=== PATIENT | male | born 1965 | race Caucasian/White ===

== ENCOUNTER 2024-07-13 21:46 | Inpatient (IN) | payer BC ==
[~2024-07-13] VITALS: Ht 188 cm; Wt 140.9 kg
[2024-07-13] MEDS ORDERED: ondansetron/PF 4mg/2ml inj IM ONE (22:00)
[2024-07-13] MEDS: morphine 2 MG/ML inj. syringe IV ONE ×2 (22:06→22:25)
[2024-07-13] MEDS: normal saline 1000ml 1,000 ML IV ONE (22:11)
[2024-07-13] MEDS: amiodarone/D5 360MG/200ML BAG 200 ML IV SCH (22:11)
[2024-07-13] MEDS: aspirin 81mg tab.chew PO ONE (22:12)
[2024-07-13 22:22] LABS: BASOPHILS # (AUTO) 0.1 X10'3 (0-0.2); MEAN CORPUSCULAR VOLUME 87.3 FL (78-98); MONOCYTES # (AUTO) 0.6 X10'3 (0-0.9)
[2024-07-13 22:23] LABS: BASOPHILS % (AUTO) 0.7 % (0-1); EOSINOPHILS # (AUTO) 0.2 X10'3 (0-0.9); EOSINOPHILS % (AUTO) 1.6 % (0-6); HEMOGLOBIN 14.4 g/dl (14.0-17.9); LYMPHOCYTES # (AUTO) 6.3 X10'3 (1.1-4.8); LYMPHOCYTES % (AUTO) 61.2 % (21-51); MEAN CORPUSCULAR HEMOGLOBIN 30.6 PG (27.0-31.0); MEAN PLATELET VOLUME 9.2 FL (7.4-10.4); MONOCYTES % (AUTO) 6.1 % (2-12); NEUTROPHILS # (AUTO) 3.1 X10'3 (1.8-7.7); NEUTROPHILS % (AUTO) 30.4 % (42-75); PLATELET COUNT 284 X10'3 (140-440); RED CELL DISTRIBUTION WIDTH 13.9 % (11.5-14.5); WHITE BLOOD COUNT 10.2 X10'3 (4.5-11.0)
[2024-07-13] MEDS: ondansetron/PF 4mg/2ml inj IV STA (22:25)
[2024-07-13 22:31] LABS: ALANINE AMINOTRANSFERASE 145 U/L (12-78); ALBUMIN 3.7 G/DL (3.4-5.0); ALBUMIN/GLOBULIN RATIO 1.1 (1.1-1.5); ALKALINE PHOSPHATASE 67 IU/L (46-116); ANION GAP 22 (8-16); ASPARTATE AMINO TRANSFERASE 117 U/L (10-37); BILIRUBIN,TOTAL 1.1 MG/DL (0.1-1.0); BLOOD UREA NITROGEN 23 MG/DL (7-18); CALCIUM 8.8 MG/DL (8.5-10.1); CHLORIDE 100 MMOL/L (99-107); CREATININE 1.53 MG/DL (0.60-1.10); GLUCOSE 266 MG/DL (70-104); POTASSIUM 3.2 MMOL/L (3.5-5.1); SODIUM 139 MMOL/L (135-145); TOTAL CARBON DIOXIDE 17.1 MMOL/L (24-32); eCRCL 60 ML/MIN; eGFR 47 ML/MIN
[2024-07-13 22:38] LABS: PRO BRAIN NATRIURETIC PEPTIDE 432 PG/ML (0-125)
[2024-07-13 23:03] LABS: APTT 25 SECONDS (22-32); INR 1.2 INR
[2024-07-13 23:10] LABS: SMUDGE CELLS 2+; TOTAL CELLS COUNTED 100
[2024-07-13 23:12] LABS: ACANTHOCYTES 1+; BURR CELLS 3+; ELLIPTOCYTES 1+; PLATELET ESTIMATE NORMAL; POIKILOCYTOSIS 3+
[2024-07-14] VITALS (13 sets, daily range): BP systolic 108–155; BP diastolic 59–81; PULSE 45–67; RESP 12–29; TEMP 97.3–98.4; O2SAT 91–98
[2024-07-14] MEDS: heparin 10,000 units/1 ML INJ IV ONE ×2 (00:01→00:32)
[2024-07-14] MEDS: heparin 25,000 UNIT/250ml bag 250 ML IV PRN (00:02)
[2024-07-14] MEDS: normal saline 1000ML IV soln IVB ONE (00:09)
[2024-07-14] MEDS: oxyCODONE/APAP 10/325mg tablet PO STA (00:09)
[2024-07-14] MEDS: MESSAGE TO NURSING IV ONE ×2 (00:10→08:34)
[2024-07-14] MEDS: potassium Cl 20 mEq SR tablet PO STA (00:41)
[2024-07-14 01:22] LABS: MAGNESIUM 1.6 MG/DL (1.5-2.4)
[2024-07-14] MEDS ORDERED: potassium Cl 40MEQ/1/2NS 520ml 520 ML IV PRN (02:40)
[2024-07-14] MEDS ORDERED: magnesium sulf-water 4G/100mL 100 ML IV PRN (02:40)
[2024-07-14] MEDS ORDERED: potassium Cl 20 mEq SR tablet PO PRN ×2 (02:40)
[2024-07-14] MEDS ORDERED: magnesium Cl slow-release 64mg tablet PO PRN (02:40)
[2024-07-14] MEDS ORDERED: acetaminophen 325mg tablet PO PRN (02:40)
[2024-07-14] MEDS ORDERED: mag hydrox/Alum hydrox/simeth 30ml oral suspension PO PRN (02:40)
[2024-07-14] MEDS ORDERED: magnesium sulf-water 2g/50mL 50 ML IV PRN (02:40)
[2024-07-14] MEDS ORDERED: ondansetron/PF 4mg/2ml inj IV PRN ×2 (02:40→10:45)
[2024-07-14] MEDS ORDERED: dextrose 50%-water 50ml dispensing syringe IV PRN ×2 (02:45)
[2024-07-14] MEDS ORDERED: DEXTROSE 15 GM of carb/4 tabs (each vial/BOTTLE has 4 tablets) PO PRN ×2 (02:45)
[2024-07-14] MEDS ORDERED: glucagon, human recombinant 1mg kit SUBCUT PRN (02:45)
[2024-07-14 03:33] LABS: PHOSPHORUS 6.2 MG/DL (2.3-4.5)
[2024-07-14 03:45] LABS: HEMOGLOBIN A1C 6.6 % (4.5-6.2)
[2024-07-14] MEDS ORDERED: Amlodipine PO (06:46)
[2024-07-14] MEDS ORDERED: APIX5TAB3 PO (06:46)
[2024-07-14] MEDS ORDERED: LOSA1TAB39 PO (06:48)
[2024-07-14] MEDS ORDERED: ATOR40TA PO (06:48)
[2024-07-14] MEDS ORDERED: BUSP10TA11 PO (06:48)
[2024-07-14] MEDS ORDERED: MELA10TA3 PO (06:50)
[2024-07-14] MEDS ORDERED: METF-1203 PO (06:50)
[2024-07-14 07:29] LABS: BASOPHILS # (AUTO) 0.1 X10'3 (0-0.2); BASOPHILS % (AUTO) 0.7 % (0-1); EOSINOPHILS % (AUTO) 0.2 % (0-6); HEMATOCRIT 38.4 % (42.0-52.0); HEMOGLOBIN 13.1 g/dl (14.0-17.9); LYMPHOCYTES # (AUTO) 0.7 X10'3 (1.1-4.8); LYMPHOCYTES % (AUTO) 9.2 % (21-51); MEAN CORPUSCULAR HEMOGLOBIN 29.3 PG (27.0-31.0); MEAN CORPUSCULAR VOLUME 86.4 FL (78-98); MEAN PLATELET VOLUME 8.9 FL (7.4-10.4); MONOCYTES # (AUTO) 0.4 X10'3 (0-0.9); MONOCYTES % (AUTO) 5.9 % (2-12); NEUTROPHILS # (AUTO) 6.3 X10'3 (1.8-7.7); PLATELET COUNT 179 X10'3 (140-440); RED BLOOD COUNT 4.45 X10'6 (4.70-6.10); RED CELL DISTRIBUTION WIDTH 13.9 % (11.5-14.5); WHITE BLOOD COUNT 7.5 X10'3 (4.5-11.0)
[2024-07-14] MEDS: INSULIN LISPRO 100 UNIT/ML INSULN.PEN MULTI-DOSE SQ SCH (07:43)
[2024-07-14] MEDS: K and/or MAG REPLACEMENT MC SCH (08:00)
[2024-07-14 08:11] LABS: CHOLESTEROL 145 MG/DL (0-200); HDL CHOLESTEROL 72 MG/DL (35-60); LDL CHOLESTEROL 64 MG/DL (50-100); TRIGLYCERIDES 36 MG/DL (20-135)
[2024-07-14] MEDS: heparin 10,000 units/1 ML INJ IV PRN (08:24)
[2024-07-14] MEDS: aspirin 81mg tab.chew PO SCH (08:30)
[2024-07-14] MEDS: metoprolol succinate 25mg (24-HOUR) SR. Tablet PO SCH (08:31)
[2024-07-14] MEDS: atorvastatin 20mg tablet PO SCH (08:32)
[2024-07-14] MEDS: busPIRone 15mg tablet PO SCH (09:00)
[2024-07-14] MEDS ORDERED: Metoprolol PO (09:11)
[2024-07-14] MEDS ORDERED: FLEC100T PO (09:11)
[2024-07-14] MEDS ORDERED: verapamil 2.5 mg/ml inj IV ONE (09:15)
[2024-07-14] MEDS ORDERED: heparin 1,000unit/ml 10ml vial 10 ML ONE (09:15)
[2024-07-14] MEDS ORDERED: LIDOcaine 1% 30ml preserv. free vial ONE (09:15)
[2024-07-14] MEDS ORDERED: iohexol 350MG/ML 100ml bottle IV ONE (09:15)
[2024-07-14] MEDS ORDERED: fentaNYL/PF 50MCG/1 ML 2ML syringe ONE (09:15)
[2024-07-14] MEDS ORDERED: midazolam 1 mg/ML 2ml injection ONE ×2 (09:15→09:55)
[2024-07-14] MEDS ORDERED: nitroGLYCERIN 500mcg/5mL D5W 5 ML IV ONE (09:48)
[2024-07-14] MEDS ORDERED: HYDROcodone/acetaminophen 5mg/325mg tablet PO PRN (10:45)
[2024-07-14] MEDS ORDERED: OXAZEpam 15mg capsule PO PRN (10:45)
[2024-07-14] MEDS ORDERED: proCHLORperazine 10 MG/2 ml inj IV PRN (10:45)
[2024-07-14] MEDS: LORazepam 0.5 MG tablet PO PRN (16:31)
[2024-07-14] MEDS: amiodarone/D5 360MG/200ML BAG 200 ML IV SCH (19:45)
[2024-07-14] MEDS: amLODIPine 5mg tablet PO SCH (20:55)
[2024-07-14] MEDS: Melatonin 3mg tablet PO SCH (20:55)
[2024-07-14] MEDS: insulin glargine (Lantus) pen - multi-dose SQ SCH (21:04)
[2024-07-15] VITALS (13 sets, daily range): BP systolic 109–159; BP diastolic 57–77; PULSE 46–71; RESP 14–26; TEMP 97.6–98.3; O2SAT 92–98
[2024-07-15] MEDS: HYDROcodone/acetaminophen 10/325mg tab PO PRN (00:50)
[2024-07-15 06:33] LABS: BASOPHILS # (AUTO) 0.1 X10'3 (0-0.2); BASOPHILS % (AUTO) 1.1 % (0-1); EOSINOPHILS # (AUTO) 0.1 X10'3 (0-0.9); EOSINOPHILS % (AUTO) 1.1 % (0-6); HEMATOCRIT 36.3 % (42.0-52.0); HEMOGLOBIN 12.5 g/dl (14.0-17.9); LYMPHOCYTES # (AUTO) 1.5 X10'3 (1.1-4.8); LYMPHOCYTES % (AUTO) 23.2 % (21-51); MEAN CORPUSCULAR HEMOGLOBIN 29.5 PG (27.0-31.0); MEAN CORPUSCULAR HGB CONC 34.5 g/dL (33.0-36.5); MEAN CORPUSCULAR VOLUME 85.5 FL (78-98); MEAN PLATELET VOLUME 8.8 FL (7.4-10.4); MONOCYTES # (AUTO) 0.5 X10'3 (0-0.9); MONOCYTES % (AUTO) 7.5 % (2-12); NEUTROPHILS # (AUTO) 4.4 X10'3 (1.8-7.7); NEUTROPHILS % (AUTO) 67.1 % (42-75); PLATELET COUNT 167 X10'3 (140-440); RED BLOOD COUNT 4.24 X10'6 (4.70-6.10); RED CELL DISTRIBUTION WIDTH 13.8 % (11.5-14.5); WHITE BLOOD COUNT 6.5 X10'3 (4.5-11.0)
[2024-07-15 06:48] LABS: ALANINE AMINOTRANSFERASE 95 U/L (12-78); ALBUMIN 3.3 G/DL (3.4-5.0); ALBUMIN/GLOBULIN RATIO 1.1 (1.1-1.5); ALKALINE PHOSPHATASE 55 IU/L (46-116); ANION GAP 9 (8-16); ASPARTATE AMINO TRANSFERASE 68 U/L (10-37); BILIRUBIN,TOTAL 1.1 MG/DL (0.1-1.0); BLOOD UREA NITROGEN 17 MG/DL (7-18); BUN/CREATININE RATIO 18.5 (10.0-20.0); CALCIUM 8.1 MG/DL (8.5-10.1); CHLORIDE 104 MMOL/L (99-107); CREATININE 0.92 MG/DL (0.60-1.10); GLUCOSE 127 MG/DL (70-104); SODIUM 139 MMOL/L (135-145); TOTAL CARBON DIOXIDE 26.2 MMOL/L (24-32); TOTAL PROTEIN 6.4 G/DL (6.4-8.2); eCRCL 101 ML/MIN; eGFR 84 ML/MIN
[2024-07-15 06:55] LABS: POTASSIUM 2.9 MMOL/L (3.5-5.1)
[2024-07-15] MEDS ORDERED: magnesium sulf-water 4G/100mL 100 ML IV PRN (07:55)
[2024-07-15] MEDS ORDERED: potassium CL 10mEq/100ml bag 100 ML IV PRN (07:55)
[2024-07-15] MEDS ORDERED: potassium Cl 40MEQ/270ML bag 250 ML IV PRN (07:55)
[2024-07-15] MEDS ORDERED: potassium Cl 20mEq/100mL bag 100 ML IV PRN (07:55)
[2024-07-15] MEDS ORDERED: magnesium sulf-water 2g/50mL 50 ML IV PRN (07:55)
[2024-07-15] MEDS: apixaban 5mg tablet PO SCH (08:00)
[2024-07-15] MEDS: potassium Cl 20 mEq SR tablet PO PRN (09:47)
[2024-07-15 12:45] LABS: BILIRUBIN,URINE NEGATIVE (Neg); CLARITY,URINE CLEAR (Clear); COLOR,URINE YELLOW (Yellow); GLUCOSE, URINE NEGATIVE (Neg); KETONES,URINE NEGATIVE (Neg); LEUKOCYTE ESTERASE ,URINE NEGATIVE (Neg); NITRITES, URINE NEGATIVE (Neg); OCCULT BLOOD,URINE TRACE-INTACT (Neg); PROTEIN,URINE TRACE mg/dl (Neg); UROBILINOGEN,URINE 0.2 E.U/dL (0.2-1.0)
[2024-07-15 12:53] LABS: UA COLLECTION TYPE NON-SPECIFIED
[2024-07-15 12:54] LABS: RBC,URINE 0-2 /HPF (0-2); WBC,URINE 0-4 /HPF (0-4)
[2024-07-15 12:55] LABS: BACTERIA,URINE NONE SEEN /HPF (Neg); MUCUS STRANDS NONE SEEN /LPF (Neg); SQUAMOUS EPITHELIAL CELL,UR FEW /LPF (FEW); TRANSITIONAL EPI CELLS,URINE FEW /HPF
[2024-07-15] MEDS ORDERED: fentaNYL/PF 50MCG/1 ML 2ML syringe ONE ×2 (13:36→14:01)
[2024-07-15] MEDS ORDERED: midazolam 1 mg/ML 2ml injection ONE ×2 (13:36→14:01)
[2024-07-15] MEDS ORDERED: LIDOcaine 1% w/EPI 1:100,000 inj. MDV 50 ML VIAL ONE (13:40)
[2024-07-15] MEDS ORDERED: ceFAZolin 1000mg inj ONE ×2 (13:40→13:41)
[2024-07-15] MEDS ORDERED: amiodarone/D5 360MG/200ML BAG 200 ML IV ONE (14:53)
[2024-07-15] MEDS ORDERED: LORazepam 1 MG tablet PO PRN (15:30)
[2024-07-15] MEDS: ceFAZolin/D5W- 1GM premix 50 ML IV SCH (16:36)
[2024-07-15 19:52] LABS: BILIRUBIN,DIRECT 0.3 MG/DL (0-0.3); FREE T4 (FREE THYROXINE) 1.14 NG/DL (0.73-1.40); THYROID STIMULATING HORMONE 1.76 ulU/ml (0.34-4.50)
[2024-07-15] MEDS: atorvastatin 20mg tablet PO SCH (20:14)
[2024-07-16] VITALS (16 sets, daily range): BP systolic 139–168; BP diastolic 10–87; PULSE 62–96; RESP 19–25; TEMP 97.3–98; O2SAT 93–96
[2024-07-16] MEDS: amiodarone 200mg tablet PO SCH (02:19)
[2024-07-16] MEDS: LidoCAINE 2% Topical Jelly 11mL syringe (UROJET) TOP ONE (05:55)
[2024-07-16 06:41] LABS: BASOPHILS # (AUTO) 0.1 X10'3 (0-0.2); BASOPHILS % (AUTO) 0.9 % (0-1); EOSINOPHILS # (AUTO) 0.1 X10'3 (0-0.9); EOSINOPHILS % (AUTO) 2.2 % (0-6); HEMATOCRIT 36.6 % (42.0-52.0); HEMOGLOBIN 12.7 g/dl (14.0-17.9); LYMPHOCYTES # (AUTO) 1.1 X10'3 (1.1-4.8); LYMPHOCYTES % (AUTO) 17.8 % (21-51); MEAN CORPUSCULAR HEMOGLOBIN 29.8 PG (27.0-31.0); MEAN CORPUSCULAR HGB CONC 34.8 g/dL (33.0-36.5); MEAN CORPUSCULAR VOLUME 85.7 FL (78-98); MEAN PLATELET VOLUME 8.6 FL (7.4-10.4); MONOCYTES # (AUTO) 0.5 X10'3 (0-0.9); MONOCYTES % (AUTO) 8.9 % (2-12); NEUTROPHILS # (AUTO) 4.2 X10'3 (1.8-7.7); NEUTROPHILS % (AUTO) 70.2 % (42-75); PLATELET COUNT 168 X10'3 (140-440); RED BLOOD COUNT 4.27 X10'6 (4.70-6.10); RED CELL DISTRIBUTION WIDTH 13.7 % (11.5-14.5)
[2024-07-16 07:10] LABS: ALANINE AMINOTRANSFERASE 66 U/L (12-78); ALBUMIN 3.1 G/DL (3.4-5.0); ALBUMIN/GLOBULIN RATIO 0.8 (1.1-1.5); ALKALINE PHOSPHATASE 56 IU/L (46-116); ANION GAP 11 (8-16); ASPARTATE AMINO TRANSFERASE 35 U/L (10-37); BILIRUBIN,TOTAL 1.9 MG/DL (0.1-1.0); BLOOD UREA NITROGEN 12 MG/DL (7-18); BUN/CREATININE RATIO 14.8 (10.0-20.0); CALCIUM 8.3 MG/DL (8.5-10.1); CHLORIDE 105 MMOL/L (99-107); CREATININE 0.81 MG/DL (0.60-1.10); GLUCOSE 127 MG/DL (70-104); POTASSIUM 3.1 MMOL/L (3.5-5.1); SODIUM 141 MMOL/L (135-145); TOTAL CARBON DIOXIDE 24.6 MMOL/L (24-32); TOTAL PROTEIN 6.9 G/DL (6.4-8.2); eCRCL 114 ML/MIN; eGFR > 90 ML/MIN
[2024-07-16] MEDS: phenazopyridine 100mg tablet PO SCH (08:53)
[2024-07-16] MEDS: magnesium hydroxide 30ml (MOM) UD suspension PO PRN (08:54)
[2024-07-16] MEDS: potassium Cl 40MEQ/1/2NS 520ml 520 ML IV PRN (09:11)
[2024-07-16] MEDS ORDERED: SITA25TA3 PO (15:42)
[2024-07-16] MEDS ORDERED: AMI200T PO (15:42)
[2024-07-16] MEDS ORDERED: POTA-207 PO (15:45)
[2024-07-16] MEDS ORDERED: LORA-269 PO (16:17)
== END 2024-07-16 17:20 | disposition home or self-care (01) | DRG 275 ==
LOC: ER 21:47 → ED HOLD 07-14 02:40 → PCU 3S 07-14 10:25
PROVIDERS: ADMIT Internal Medicine; ATTEND Family Medicine
PROC: 5A2204Z Restoration of Cardiac Rhythm, Single (ICD-10-PCS; 2024-07-13)
PROC: 4A023N7 Measurement of Cardiac Sampling and Pressure, Left Heart, Percutaneous Approach (ICD-10-PCS; 2024-07-14)
PROC: B2151ZZ Fluoroscopy of Left Heart using Low Osmolar Contrast (ICD-10-PCS; 2024-07-14)
PROC: B2111ZZ Fluoroscopy of Multiple Coronary Arteries using Low Osmolar Contrast (ICD-10-PCS; 2024-07-14)
PROC: 0JH608Z Insertion of Defibrillator Generator into Chest Subcutaneous Tissue and Fascia, Open Approach (ICD-10-PCS; principal; 2024-07-15)
PROC: 02H63KZ Insertion of Defibrillator Lead into Right Atrium, Percutaneous Approach (ICD-10-PCS; 2024-07-15)
PROC: 02HK3KZ Insertion of Defibrillator Lead into Right Ventricle, Percutaneous Approach (ICD-10-PCS; 2024-07-15)
PROC: 5A09357 Assistance with Respiratory Ventilation, Less than 24 Consecutive Hours, Continuous Positive Airway Pressure (ICD-10-PCS; 2024-07-15)
DX: I49.01 Ventricular fibrillation (principal); I21.A1 Myocardial infarction type 2; N17.0 Acute kidney failure with tubular necrosis; I46.9 Cardiac arrest, cause unspecified; I49.5 Sick sinus syndrome; I48.91 Unspecified atrial fibrillation; I10 Essential (primary) hypertension; G47.33 Obstructive sleep apnea (adult) (pediatric); E87.6 Hypokalemia; E78.5 Hyperlipidemia, unspecified; E11.9 Type 2 diabetes mellitus without complications; R07.89 Other chest pain; R79.89 Other specified abnormal findings of blood chemistry; F41.9 Anxiety disorder, unspecified; Z79.01 Long term (current) use of anticoagulants; Z79.84 Long term (current) use of oral hypoglycemic drugs; Z79.899 Other long term (current) drug therapy; Z95.810 Presence of automatic (implantable) cardiac defibrillator
CPT/HCPCS: 33249; 36415; 71045; 80053; 80061; 81001; 82248; 82948; 83036; 83735; 83880; 84100; 84439; 84443; 84484; 85007; 85025; 85610; 85730; 87081; 92960; 93005; 93306; 93458; 94760; 96374; 96375; 97116; 97161; 97530; 99152; 99153; 99291; A4565; A4615; A6258; C1721; C1758; C1894; C1895; C1898; G0378; J0282; J0690; J1644; J1815; J2003; J2250; J2270; J2405; J3010; J3480; J3490; J7030; J7040; Q9967

== ENCOUNTER 2024-07-24 09:07 | Emergency (ER) | payer BC ==
[~2024-07-24] VITALS: Ht 200.7 cm; Wt 139.1 kg
[~2024-07-24 09:07] MED LIST: AMI200T PO; APIX5TAB3 PO; ATOR40TA PO; Amlodipine PO; BUSP10TA11 PO; LORA-269 PO; LOSA1TAB39 PO; MELA10TA3 PO; Metoprolol PO; POTA-207 PO; SITA25TA3 PO
[2024-07-24] MEDS: LORazepam 2 mg/ml vial IV ONE (10:22)
[2024-07-24] MEDS: LORazepam 1 MG tablet PO ONE (10:36)
[2024-07-24 10:38] VITALS: TEMP 98.3
[2024-07-24 11:07] LABS: BASOPHILS # (AUTO) 0.1 X10'3 (0-0.2); EOSINOPHILS # (AUTO) 0.1 X10'3 (0-0.9); EOSINOPHILS % (AUTO) 2.1 % (0-6); HEMATOCRIT 43.3 % (42.0-52.0); HEMOGLOBIN 14.8 g/dl (14.0-17.9); LYMPHOCYTES # (AUTO) 1.3 X10'3 (1.1-4.8); LYMPHOCYTES % (AUTO) 20.5 % (21-51); MEAN CORPUSCULAR HEMOGLOBIN 29.2 PG (27.0-31.0); MEAN CORPUSCULAR HGB CONC 34.1 g/dL (33.0-36.5); MEAN CORPUSCULAR VOLUME 85.4 FL (78-98); MEAN PLATELET VOLUME 7.9 FL (7.4-10.4); MONOCYTES # (AUTO) 0.4 X10'3 (0-0.9); MONOCYTES % (AUTO) 6.4 % (2-12); NEUTROPHILS # (AUTO) 4.4 X10'3 (1.8-7.7); PLATELET COUNT 261 X10'3 (140-440); RED BLOOD COUNT 5.08 X10'6 (4.70-6.10); RED CELL DISTRIBUTION WIDTH 13.7 % (11.5-14.5); WHITE BLOOD COUNT 6.3 X10'3 (4.5-11.0)
[2024-07-24] MEDS ORDERED: AMI200T PO (11:10)
[2024-07-24 11:19] LABS: ALBUMIN 4.1 G/DL (3.4-5.0); ANION GAP 8 (8-16); BLOOD UREA NITROGEN 23 MG/DL (7-18); CALCIUM 9.7 MG/DL (8.5-10.1); CHLORIDE 101 MMOL/L (99-107); GLUCOSE 154 MG/DL (70-104); POTASSIUM 4.3 MMOL/L (3.5-5.1); SODIUM 138 MMOL/L (135-145); TOTAL CARBON DIOXIDE 28.7 MMOL/L (24-32); eCRCL 105 ML/MIN; eGFR 76 ML/MIN
[2024-07-24 12:13] VITALS: BP 142/86; PULSE 64; RESP 16; O2SAT 96
== END 2024-07-24 12:19 | disposition home or self-care (01) ==
LOC: ER 09:08
DX: T82.897A Other specified complication of cardiac prosthetic devices, implants and grafts, initial encounter (principal); F41.9 Anxiety disorder, unspecified; I48.92 Unspecified atrial flutter; I10 Essential (primary) hypertension; E11.9 Type 2 diabetes mellitus without complications; I48.91 Unspecified atrial fibrillation; Z79.01 Long term (current) use of anticoagulants; Z79.899 Other long term (current) drug therapy; Y71.8 Miscellaneous cardiovascular devices associated with adverse incidents, not elsewhere classified; Y92.89 Other specified places as the place of occurrence of the external cause
CPT/HCPCS: 36415; 71045; 80048; 83605; 84145; 85025; 87040; 93005; 99285; A6258; A6449